=== PATIENT | male | born 1965 | race Caucasian/White ===

== ENCOUNTER → 2016-11-06 | Outpatient (CLI) | payer BC ==
--- NOTE | 2016-11-07 08:15 | XR ---
Abdomen HISTORY: Right flank pain Frontal view of the abdomen submitted on 2 images Bone mineralization is maintained. Joint space loss in the hips may be due to arthropathy. Degenerati ve disc changes in the visualized spine. Lung bases not included on the exam. No definite nephrolithi asis, overlying bowel gas may obscure detail. No obstruction or pneumoperitoneum evident. IMPRESSION: Nonobstructive bowel gas pattern. Additional findings above.
== END | disposition home or self-care (01) ==
LOC: RADXRYALE 15:36
PROVIDERS: ATTEND Family Medicine
DX: R10.9 Unspecified abdominal pain (principal)
CPT/HCPCS: 74000

== ENCOUNTER → 2016-12-16 | Outpatient (CLI) | payer BC ==
--- NOTE | 2016-12-16 08:15 | CT ---
EXAMINATION TYPE: CT abdomen pelvis wo con DATE OF EXAM: 12/16/2016 7:24 AM COMPARISON: NONE HISTORY: 51-year-old male with left flank pain, microscopic hematuria CT DLP: 1121 mGycm. Automated exposure control for dose reduction was used. TECHNIQUE: Contiguous axial scanning of the abdomen and pelvis without IV contrast. Coronal and sagit valencia reconstructions performed. FINDINGS: Heart is normal size without pericardial effusion. Lung bases clear without pleural effusion. Some co ronary vessel calcifications are present under a marker for coronary artery disease. Tiny hiatal hernia. Noncontrast appearance of the liver, gallbladder, adrenal glands, kidneys, spleen, and pancreas appea r within normal limits. Specifically, no hydronephrosis, nephrolithiasis, or suspicious ureteral calculus is seen. No dilated small bowel, free fluid, or free air. No mesenteric or retroperitoneal lymphadenopathy. There is a small fatty periumbilical hernia. Mild stool burden with sigmoid diverticulosis but no evidence for acute diverticulitis. Bladder is incompletely distended. Prostate gland mildly enlarged at 4.6 cm with central prostatic ca lcifications. Rectum appears normal. No abnormal fluid collection in the pelvis or pelvic lymphadenop athy. Bones: Degenerative changes at the hips and variable multilevel mild degenerative disc disease. No os seous destructive process. IMPRESSION: 1. No nephrolithiasis, hydronephrosis, or obstructing ureteral calculus identified. 2. Tiny hiatal hernia and small fatty umbilical hernia. 3. Sigmoid diverticulosis.
== END | disposition home or self-care (01) ==
LOC: RADCTMAIN 07:10
PROVIDERS: ATTEND Family Medicine
DX: K57.30 Diverticulosis of large intestine without perforation or abscess without bleeding (principal); K44.9 Diaphragmatic hernia without obstruction or gangrene; K42.9 Umbilical hernia without obstruction or gangrene
CPT/HCPCS: 74176

== ENCOUNTER → 2017-12-22 | Outpatient (CLI) | payer BC ==
--- NOTE | 2017-12-23 08:49 | XR ---
Abdomen HISTORY: Left lower quadrant pain with hematuria Frontal view of the abdomen submitted on 2 images and correlated to prior abdomen 11/06/2016, CT abdom en pelvis 12/16/2016 No significant interval change. Lung bases are clear. There is no evident pneumoperitoneum or bowel o bstruction. No evident nephrolithiasis or pelvic calcification. IMPRESSION: Stable exam, no acute abnormalities evident
== END | disposition home or self-care (01) ==
LOC: RADXRYALE 15:42
PROVIDERS: ATTEND Family Medicine
DX: R31.9 Hematuria, unspecified (principal)
CPT/HCPCS: 74018

== ENCOUNTER → 2018-01-05 | Outpatient (CLI) | payer BC ==
--- NOTE | 2018-01-05 22:37 | US ---
EXAMINATION TYPE: US kidneys/renal and bladder DATE OF EXAM: 01/05/2018 COMPARISON: 12/16/2016 CLINICAL HISTORY: 52-year-old male R319 HEMATURIA,N200 CALCULUS OF KIDNEY. Left flank pain. Technique: Multiple sonographic images of the kidneys and bladder are obtained. FINDINGS: CARDIAC TECHNICIAN NOTES: Difficult and limited study due to patient body habitus Right Kidney: 12.0 x 6.0 x 6.8 cm without hydronephrosis. Left Kidney: 11.8 x 6.1 x 4.7 cm without hydronephrosis. No gross abnormality of the urine distended bladder. Both ureteral jets are visualized. IMPRESSION: No hydronephrosis. Both ureteral jets are seen.
== END | disposition home or self-care (01) ==
LOC: RADUSWWP 16:17
PROVIDERS: ATTEND Family Medicine
DX: N20.0 Calculus of kidney (principal); Z96.0 Presence of urogenital implants
CPT/HCPCS: 76770

== ENCOUNTER → 2020-04-27 | Outpatient (CLI) | payer BC ==
--- NOTE | 2020-04-27 08:39 | CT ---
EXAMINATION TYPE: CT soft tissue neck wo/w con DATE OF EXAM: 04/27/2020 COMPARISON: 12/12/2014 HISTORY: 55-year-old male R13.10 Dysphagia. Difficulty swallowing for the past 5 years. TECHNIQUE: Contiguous axial scanning of the soft tissues of the neck performed without and with IV Co ntrast, patient injected with 100 mL of Isovue 300. Coronal/sagittal reconstructions performed. CT DLP: 1488.3 mGycm Automated exposure control for dose reduction was used. FINDINGS: 3.5 cm ectasia of the proximal arch. Conventional arch vessel branching anatomy. The thyroid, submandibular, and parotid glands appear satisfactory. A couple borderline size lower left parotid space lymph nodes measuring up to 5 mm. Additional scatte red nonenlarged lymph nodes are present on both sides of the neck. Visualized intracranial structures, orbits and globes, paranasal sinuses, mastoid air cells appear cl ear. Nasopharynx is clear. Punctate calcifications in the bilateral palatine tonsils suggests sequela of p rior infection. Mild bilateral palatine tonsillar hypertrophy. Oropharynx otherwise clear. Epiglottis and prevertebral soft tissues are within normal limits. Glottic and subglottic structures as well as the tracheal column and visualized upper lungs are clear . Moderate to severe degenerative disc disease C6-C7 with anterior endplate spondylosis causing mild im pression onto the back wall of the upper cervical esophagus. IMPRESSION: 1. MILD BILATERAL PALATINE TONSILLAR HYPERTROPHY. PUNCTATE CALCIFICATIONS SUGGEST SEQUELA OF PRIOR IN FECTION. 2. MODERATE TO SEVERE DEGENERATIVE DISC DISEASE AT C6-C7 WITH ANTERIOR SPURRING CAUSING MILD IMPRESSI ON ONTO THE BACK WALL OF THE UPPER CERVICAL ESOPHAGUS.
== END | disposition home or self-care (01) ==
LOC: RADCTMAIN 07:59
PROVIDERS: ATTEND Family Medicine
DX: J35.1 Hypertrophy of tonsils (principal); R09.89 Other specified symptoms and signs involving the circulatory and respiratory systems
CPT/HCPCS: 70492; Q9967

== ENCOUNTER → 2021-11-28 | Outpatient (CLI) | payer BC ==
--- NOTE | 2021-11-28 12:05 | XR ---
Sacrum and coccyx HISTORY: M545,M533 LBP,SAC/MARCO DISORDER 3 views of the sacrum and coccyx Degenerative disc changes are noted the lower lumbar spine, lumbosacral junction, there is facet arth ropathy. There is no evident fracture or dislocation. IMPRESSION: Degenerative disc disease noted of lumbosacral spine
== END | disposition home or self-care (01) ==
LOC: RADXRYALE 09:51
PROVIDERS: ATTEND Physician Assistant
DX: M51.37 Other intervertebral disc degeneration, lumbosacral region (principal)
CPT/HCPCS: 72220

== ENCOUNTER → 2021-12-13 | Outpatient (CLI) | payer BC ==
--- NOTE | 2021-12-13 11:12 | US ---
EXAMINATION TYPE: US liver DATE OF EXAM: 12/13/2021 COMPARISON: NONE CLINICAL HISTORY: R94.5 abn liver studies. EXAM MEASUREMENTS: Liver Length: 12.1 cm Gallbladder Wall: 0.3 cm CBD: 0.3 cm Right Kidney: 11.1 x 4.8 x 5.1 cm Pancreas: Obscured by bowel gas Liver: wnl Gallbladder: wnl Evidence for sonographic Robles's sign: no CBD: wnl Right Kidney: No hydronephrosis or masses seen IMPRESSION: No distinct abnormality seen.
== END | disposition home or self-care (01) ==
LOC: RADUSWWP 08:38
PROVIDERS: ATTEND Family Medicine
DX: R94.5 Abnormal results of liver function studies (principal)
CPT/HCPCS: 76705

== ENCOUNTER → 2021-12-24 | Outpatient (CLI) | payer BC ==
--- NOTE | 2021-12-24 14:58 | CT ---
EXAMINATION TYPE: CT abdomen w con DATE OF EXAM: 12/24/2021 COMPARISON: CT dated 12/16/2016 HISTORY: Elevated liver transaminase, Lower abdominal tenderness CT DLP: 1328 mGycm Automated exposure control for dose reduction was used. TECHNIQUE: Helical acquisition of images was performed from the lung bases through the top of iliac crest to include entire abdomen. CONTRAST: Performed with Oral Contrast and with IV Contrast, patient injected with 100 ml mL of Isovue 300. FINDINGS: Unremarkable liver, gallbladder, spleen, adrenals and kidneys. Mild fatty infiltration of the pancrea tic head, otherwise unremarkable pancreas. Scattered arterial atherosclerotic calcifications. Unremarkable stomach, duodenum and visualized small bowel. Scattered uncomplicated colonic diverticul osis. Fat-containing umbilical hernia. No pathologically enlarged abdominal lymph nodes. No intra or extrahepatic biliary tree dilatation. No abdominal ascites. Unremarkable lung bases. No a ggressive bone lesion. Degenerative changes at L1-2 level. IMPRESSION: Fat-containing umbilical hernia. No acute abnormality or suspicious lesion is seen in the abdomen oth erwise. Please note that the pelvis was not included in the scan.
== END | disposition home or self-care (01) ==
LOC: RADCTMAIN 12:09
PROVIDERS: ATTEND Family Medicine
DX: K42.9 Umbilical hernia without obstruction or gangrene (principal)
CPT/HCPCS: 74160; Q9967 ×2

== ENCOUNTER 2022-02-07 09:55 | Day surgery (SDC) | payer BC ==
[2022-02-05 13:42] VITALS: BMI 33.2
[~2022-02-07 09:55] MED LIST: LACTATED RINGERS 1,000 ML IV SCH
[2022-02-07 10:20] VITALS: RESP 16; TEMP 97.9
[2022-02-07] MEDS ORDERED: LIDOCAINE 1% (10MG/ML) FOR IV START INTRADERMA ONE (10:22)
[2022-02-07 10:39] LABS: Glucose,Whole Blood 94 mg/dL (75-99)
[2022-02-07] MEDS ORDERED: PROPOFOL 10 MG/ML 20 ML VIAL IV ONE (11:30)
--- NOTE | 2022-02-07 11:49 | P.PCN ---
Date of Procedure: 02/07/22 Procedure(s) Performed: BRIEF HISTORY: Patient is a 58-year-old pleasant white female scheduled for an elective colonoscopy as a part of screening for colorectal neoplasia. PROCEDURE PERFORMED: Colonoscopy. PREOPERATIVE DIAGNOSIS: Screening for colon cancer. IV sedation per Anesthesia. PROCEDURE: After informed consent was obtained, the patient, was brought into the endoscopy unit. IV sedation was administered by Anesthesia under continuous monitoring. Digital rectal examination was normal. Initially the Olympus CF-160 flexible video colonoscope was then inserted in the rectum, gradually advanced into the cecum without any difficulty. Careful examination was performed as the scope was gradually being withdrawn. Ileocecal valve and the appendiceal orifice were visualized and appeared normal. Prep was excellent. Mucosa of the cecum, ascending colon, transverse colon, descending colon, sigmoid colon, and rectum appeared normal. Scattered sigmoid diverticulosis. Retroflexion was performed in the rectum and no lesions were seen. The patient tolerated the procedure well. IMPRESSION: Normal-appearing colon from rectum to cecum with no evidence of colorectal neoplasia Scattered sigmoid diverticula. RECOMMENDATIONS: Findings of this examination were discussed with the patient as his family. He was advised to have a repeat screening colonoscopy in 10 years..
[2022-02-07 12:24] VITALS: BP 131/85; PULSE 81
== END 2022-02-07 12:30 | disposition home or self-care (01) ==
LOC: ORWHC2ENDO 09:55
PROVIDERS: ATTEND Internal Medicine Gastroenterology
DX: Z12.11 Encounter for screening for malignant neoplasm of colon (principal); K57.30 Diverticulosis of large intestine without perforation or abscess without bleeding
CPT/HCPCS: 45378; J2704

== ENCOUNTER → 2022-02-17 | Outpatient (CLI) | payer BC ==
--- NOTE | 2022-02-17 19:55 | CT ---
EXAMINATION TYPE: CT pelvis wo con CT DLP: 688.4 mGycm, Automated exposure control for dose reduction was used. DATE OF EXAM: 02/17/2022 3:26 PM COMPARISON: CT abdomen pelvis 12/16/2016. CLINICAL INDICATION:Male, 56 years old with history of M533 Sacrococcygeal G89.29 Other chronic pain, tailbone pain TECHNIQUE: Multiple axial images were obtained from the midportion of T11 through the sacroiliac ira nts. Soft tissue and bone windows in coronal and sagittal planes were obtained and reviewed. 3-D ref ormats of the bones were created on a separate workstation and submitted for review. FINDINGS: Visualized portions of the intra-abdominal soft tissues demonstrate no evidence of bowel obstruction. There is scattered colonic diverticula. Mild atherosclerotic obscuration of the arterial vasculature . Subcentimeter fat filled umbilical hernia. Visualized osseous structures demonstrate no evidence of fracture. The sacrum and coccyx demonstrate similar morphology to prior in 2017. There is mild degeneration changes of the distal lumbar spine wi th mild facet joint arthropathy. No evidence of organizing fluid collection. The soft tissues over th e sacrum and coccyx is within normal limits. There is mild degeneration changes of the hips with acet abular spurring. IMPRESSION: 1. No evidence of the acute fracture. The sacrum and coccyx and is similar appearance to prior in 201 7. 2. Mild osteoarthritic changes of the hips. 3. Colonic diverticulosis.
== END | disposition home or self-care (01) ==
LOC: RADCTMAIN 14:53
PROVIDERS: ATTEND Family Medicine
DX: M16.0 Bilateral primary osteoarthritis of hip (principal); K57.30 Diverticulosis of large intestine without perforation or abscess without bleeding
CPT/HCPCS: 72192

== ENCOUNTER → 2022-10-20 | Outpatient (CLI) | payer BC ==
--- NOTE | 2022-10-20 15:02 | US ---
EXAMINATION TYPE: US kidneys/renal and bladder DATE OF EXAM: 10/20/2022 COMPARISON: CT dated 12/24/2021 & US dated01/10/2018 CLINICAL HISTORY: [id number] low back pain R30.0 dysuria. EXAM MEASUREMENTS: Right Kidney: 12.3 x 6.6 x 6.7 cm Left Kidney: 12.3 x 6.3 x 5.6 cm Right Kidney: No hydronephrosis or masses seen Left Kidney: No hydronephrosis or masses seen Bladder: wnl Bilateral Jets seen: Yes There is no evidence for hydronephrosis at this point in time. No nephrolithiasis is seen. No rico s are identified. The urinary bladder is anechoic. Bilateral ureteral jets are seen. IMPRESSION: No evidence of obstructive uropathy or urolithiasis.
== END | disposition home or self-care (01) ==
LOC: RADUSWWP 14:37
PROVIDERS: ATTEND Family Medicine
DX: M54.50 Low back pain, unspecified (principal); R30.0 Dysuria
CPT/HCPCS: 76770

== ENCOUNTER → 2024-02-23 | Outpatient (CLI) | payer BC ==
--- NOTE | 2024-02-24 08:41 | US ---
EXAMINATION TYPE: US abdomen comp/pelvis limited DATE OF EXAM: 02/23/2024 COMPARISON: CT & US CLINICAL INDICATION: Male, 58 years old with history of R31.29 OTHER MICROSCOPIC HEMATURIA; Pt states left flank pain EXAM MEASUREMENTS: Liver Length: 11.0 cm Gallbladder Wall: 0.1 cm CBD: 0.4 cm Spleen: 10.7 cm Right Kidney: 10.7 x 6.1 x 6.2 cm Left Kidney: 11.0 x 5.2 x 4.9 cm Pancreas: Obscured by bowel gas Liver: wnl Gallbladder: wnl CBD: wnl Spleen: wnl Right Kidney: wnl Left Kidney: wnl Upper IVC: wnl Abd Aorta: wnl, proximal portion gassed out Bladder: wnl Bilateral Jets Seen Yes No ultrasound abnormality to account for pt's symptoms IMPRESSION: 1. Unremarkable abdomen ultrasound.
== END | disposition home or self-care (01) ==
LOC: RADUSWWP 07:19
PROVIDERS: ATTEND Family Medicine
DX: R31.29 Other microscopic hematuria (principal); R10.10 Upper abdominal pain, unspecified
CPT/HCPCS: 76700; 76857